=== PATIENT | male | born 1985 | race Caucasian/White ===

== ENCOUNTER 2021-12-23 17:57 | Emergency (ER) | payer BC ==
[2021-12-23] MEDS ORDERED: Rabies Vaccine Human 2.5 UNITS VIAL ONE (19:33)
== END 2021-12-23 20:20 | disposition home or self-care (01) ==
LOC: ERS 17:57
DX: S60.811A Abrasion of right wrist, initial encounter (principal); W55.01XA Bitten by cat, initial encounter; Y93.53 Activity, golf
CPT/HCPCS: 90375; 90376; 90471; 90675; 96372

== ENCOUNTER → 2021-12-26 | Emergency (ER) | payer BC | LOC: ER/OP 11:59 | DX: Z23 Encounter for immunization (principal) | CPT/HCPCS: 90471 ==

== ENCOUNTER → 2021-12-30 | Day surgery (SDC) | payer BC ==
[~2021-12-30] MED LIST: Rabies Vaccine Human 2.5 UNITS VIAL ONE
== END | disposition home or self-care (01) ==
LOC: ER/OP 11:12
DX: Z23 Encounter for immunization (principal)
CPT/HCPCS: 90675

== ENCOUNTER → 2022-01-06 | Day surgery (SDC) | payer BC ==
[~2022-01-06] MED LIST changes: +Rabies Vaccine Human 2.5 UNITS VIAL IM ONE; -Rabies Vaccine Human 2.5 UNITS VIAL ONE
== END | disposition home or self-care (01) ==
LOC: ER/OP 09:14
PROVIDERS: ATTEND Emergency Medicine
DX: Z23 Encounter for immunization (principal)
CPT/HCPCS: 90471; 90675